=== PATIENT | female | born 2000 | race Caucasian/White ===

== ENCOUNTER 2022-10-15 05:20 | Inpatient (IN) ==
[2022-10-15] MEDS ORDERED: OXYTOCIN 30 UNITS/500 ML BAG IV PRN ×3 (06:15→23:11)
[2022-10-15] MEDS ORDERED: LIDOCAINE 1% LOCAL 20 ML VIAL INFIL PRN (06:15)
--- NOTE | 2022-10-15 06:20 | History & Physical Report ---
Date of Service October 15, 2022 Assessment & Plan (1) PROM (premature rupture of membranes): (2) Gestational diabetes: Plan 22 yo G1 at 39 wga admitted for prom VSS Fetus cat 1 PROM - rom confirmed, discussed pit now vs expectant managemtn, risks vs benefits of each. Pt desires to start pit now gbs neg epidural prn History of Present Illness Chief Complaint: PROM Primary Care Provider: NO PCP 22 yo G1 at 39 wga presents w/ LOF since 3AM. 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 denies hx STIs 04/2022 neg cyto Allergies Allergy/AdvReac Type Severity Reaction Status Date / Time Penicillins Allergy Mild Hives Verified 10/11/22 10:51 Home Medications Medication Instructions Recorded Confirmed Type prenat.vits,lázrao,qyu-amci-mctta 1 tab PO DAILY 07/19/22 10/15/22 History breast pump #1 ea 10/12/22 Rx Patient History Surgical History S/P wisdom tooth extraction Family History Aunt Hypertension Fibromyalgia Kidney disease Grandmother (Maternal) Hypertension Dementia Grandfather (Maternal) Heart disease Myocardial infarction Grandmother (Paternal) Heart disease Diabetes Grandfather (Paternal) Liver cancer Social History Smoking Status: Never smoker Second Hand Exposure: No; Do You Dip or Chew Tobacco: No; Hx Alcohol Use: No Hx Substance Use: No Preferred Language: Kinyarwanda Communication Ability: Effective Tax Specialist Required: No Beliefs That Will Affect Care: None marital status: Single marital status details: Body (25) [phone] Current Living Situation: Significant Other Current Living Situation Comment: lives with fob, 2 cats, fob changing litter current occupational status: unemployed Other Information That Helps Us Care for You: No Feels Safe at Home: Yes Safety Concerns: Feels Safe At This Time Physical Exam Genitourinary: OB Exam Abdomen: + vertex (confirmed by bsus) and + estimated weight (7-8) OB Exam Monitor Tracing: + external FHT monitor used, + external uterine monitor used and + category I 2/50/-2 by nursing, +amnisure Results & Data ([facility]) Vital Signs (Past 12 Hours) Vital Signs Temp Pulse Resp BP 10/15/22 05:41 74 123/81 10/15/22 05:36 97.7 F 20 Laboratory Results Initial OB Labs (04/11/22) Blood Type & RH O positive Antibody Screen negative HCT/HGB 41/13.8 Platelets 162 Hep C IgG 13yrs+ Old Negative Pap Test negative Chlamydia negative Gonorrhea negative Rubella immune RPR non reactive Urine Culture/Screen HBsAg negative HIV negative MCV 99 declined genetic testing. [facility] Diagnostic Findings post plac Coding Level of Care Code None Diagnoses PROM (premature rupture of membranes) O42.90 Gestational diabetes O24.419
[2022-10-15] MEDS: LACTATED RINGER'S 1,000 ML IV PRN ×4 (07:15→19:40)
[2022-10-15 07:42] LABS: Hematocrit (blood only) 33.5 % (37.0-47.0); Hemoglobin 11.5 g/dl (12.0-16.0); Mean Corpuscular Hemoglobin 31.6 pg (25.0-34.0); Mean Corpuscular Hgb Conc 34.3 g/dL (32.0-36.0); Mean Platelet Volume 13.8 fL (9.4-12.4); Platelet Count 124 K/uL (130-400); RDW Standard Deviation 43.4 fL (36.4-46.3); Red Blood Count 3.64 M/uL (4.20-5.40); White Blood Count 7.21 K/ul (4.8-10.8)
[2022-10-15] MEDS ORDERED: BUTORPHANOL TARTRATE 1 MG/ML VIAL IV PRN (12:35)
--- NOTE | 2022-10-15 12:38 | Labor Progress Brief Note ---
Date of Service October 15, 2022 Assessment & Plan (1) PROM (premature rupture of membranes): (2) Gestational diabetes: Plan 22 yo G1 at 39 wga admitted for prom VSS Fetus cat 1 PROM - Continue Pitocin. patient becoming uncomfortable and requested Stadol. Good contraction pattern gbs neg epidural prn Admission and Anticipated Discharge Date Admission Date: October 15, 2022 Results & Data ([facility]) Vital Signs (Past 12 Hours) Vital Signs Temp Pulse Resp BP 10/15/22 07:11 36.6 C 18 10/15/22 12:00 18 10/15/22 12:00 18 10/15/22 12:07 68 126/84 10/15/22 11:37 77 128/85 10/15/22 11:30 20 10/15/22 11:30 20 10/15/22 11:08 59 L 131/81 10/15/22 11:00 18 10/15/22 11:00 36.6 C 18 10/15/22 10:30 18 10/15/22 10:30 18 10/15/22 10:39 59 L 139/86 10/15/22 10:00 20 10/15/22 10:00 20 10/15/22 10:07 71 125/89 10/15/22 09:30 18 10/15/22 09:30 18 10/15/22 09:37 65 122/77 10/15/22 09:00 20 10/15/22 09:00 36.6 C 20 10/15/22 09:09 62 120/75 10/15/22 08:37 83 120/88 10/15/22 08:00 18 10/15/22 08:00 18 10/15/22 08:07 74 125/83 10/15/22 06:54 67 129/86 10/15/22 05:41 74 123/81 10/15/22 05:36 36.5 C 20 Coding Level of Care Code None Diagnoses PROM (premature rupture of membranes) O42.90 Gestational diabetes O24.419
[2022-10-15] MEDS ORDERED: ePHEDrine sulfate 50 MG/ML AMP ONE (14:14)
[2022-10-15] MEDS ORDERED: BUPIVACAINE 0.25% 30 ML VIAL ONE (14:14)
[2022-10-15] MEDS ORDERED: SODIUM CHLORIDE 0.9% INJ 10 ML VIAL ONE (14:14)
[2022-10-15] MEDS ORDERED: fentaNYL citrate 100 MCG/2 ML VIAL ONE (14:14)
[2022-10-15] MEDS ORDERED: LIDOCAINE 2%/EPINEPHRINE 1:200,000 20 ML SDV ONE (14:14)
[2022-10-15] MEDS ORDERED: fentaNYL 2MCG/ML ROPIVACAINE 1.25MG/ML 100 ML BAG EPI ONE (14:15)
--- NOTE | 2022-10-15 14:24 | Anesthesiology Consultation ---
Date of Service October 15, 2022 Assessment & Plan Chart Review Chart Review: Acceptable Risk for Surgery, Patient NOT seen in Pre Admission Testing and Acceptable Risk for Labor Epidural Consults Requested none ASA ASA2 Proposed Anesthesia Anesthesia Type: Labor Epidural and CSE History Height/Weight Height: 5 ft 5 in Weight: 80.739 kg Allergies Allergy/AdvReac Type Severity Reaction Status Date / Time Penicillins Allergy Mild Hives Verified 10/11/22 10:51 Medications Home Medications Medication Instructions Recorded Confirmed Last Taken prenat.vits,lázaro,lyq-ozub-dazkk 1 tab PO DAILY 07/19/22 10/15/22 10/13/22 08:00 breast pump #1 ea 10/12/22 Unknown Active Medications Generic Name Dose Route Start Last Admin Trade Name Freq PRN Reason Stop Dose Admin Butorphanol Tartrate 1 mg 10/15/22 12:35 10/15/22 12:59 Butorphanol Tartrate 1 Mg/Ml Vial IV 11/14/22 12:34 1 mg Q2HWA PRN Administration Pain Oxytocin 30 units in 500 mls @ 10 mls/hr 10/15/22 06:15 10/15/22 11:23 Pitocin IV 10/17/22 06:14 0.6 units/hr .Q24H PRN 10 mls/hr Labor Induction/Augmentation Titration Protocol 0.6 UNITS/HR Lactated Ringer's 1,000 mls @ 125 mls/hr 10/15/22 06:15 10/15/22 14:00 Lr IV 10/17/22 06:14 999 mls/hr .Q8H PRN Infusion L&D Protocol Protocol Past Medical History obese ;gerd;anemia;thrombocytopenia Exercise / Class Metabolic Activity II 4-5 Yardwork/Stairs/Walk up hill Past Family History Family History Aunt Hypertension Fibromyalgia Kidney disease Grandmother (Maternal) Hypertension Dementia Grandfather (Maternal) Heart disease Myocardial infarction Grandmother (Paternal) Heart disease Diabetes Grandfather (Paternal) Liver cancer Past Surgical History Surgical History S/P wisdom tooth extraction Past Anesthesia History No Hx of Anesthesia Complications and No Family Hx of Anesthesia Complications History of PONV No Hx of PONV and No Hx of Motion Sickness Social History Smoking Status: Never smoker Do You Dip or Chew Tobacco: No Hx Alcohol Use: No Hx Substance Use: No substance use type: does not use Physical Exam Vital Signs Last Vital Signs Temp 36.5 C 10/15/22 13:00 Pulse 73 10/15/22 14:19 Resp 18 10/15/22 13:00 BP 131/79 10/15/22 14:08 Pulse Ox 100 10/15/22 14:19 Testing Laboratory Results 10/15/22 06:38 10/15/22 10/15/22 10/15/22 14:05 10:02 06:21 POC Glucose 86 80 90
[2022-10-15] MEDS ORDERED: NALOXONE HCL 1 MG in SODIUM CHLORIDE 0.9% 1000ML 1,000 ML IV PRN (15:15)
[2022-10-15] MEDS ORDERED: ePHEDrine sulfate 50 MG/ML AMP IV PRN (15:15)
[2022-10-15] MEDS ORDERED: fentaNYL 2MCG/ML ROPIVACAINE 1.25MG/ML 100 ML BAG EPI PRN (15:15)
[2022-10-15] MEDS ORDERED: ONDANSETRON INJ 2 MG/ML 2 ML VIAL IV PRN (15:15)
[2022-10-15] MEDS ORDERED: diphenhydrAMINE 50 MG/ML VIAL IV PRN (15:15)
[2022-10-15] MEDS ORDERED: PROMETHAZINE HCL 25 MG in SODIUM CHLORIDE 0.9% 50 ML IV PRN (15:15)
[2022-10-15] MEDS ORDERED: NALBUPHINE HCL INJ 10 MG/ML AMP IV PRN (15:15)
[2022-10-15] MEDS ORDERED: NALOXONE HCL 0.4 MG/1 ML VIAL/CARP IV PRN (15:15)
--- NOTE | 2022-10-15 18:07 | Labor Progress Brief Note ---
Date of Service October 15, 2022 Subjective Reason For Note: Routine Evaluation Assessment & Plan (1) PROM (premature rupture of membranes): (2) Gestational diabetes: Plan 22 yo G1 at 39 wga admitted for prom VSS Fetus cat 1 PROM - Pitocin discontinued secondary to prolonged decel. Patient is still making progress well. Epidural placed gbs neg Admission and Anticipated Discharge Date Admission Date: October 15, 2022 Physical Exam Genitourinary: Manual OB Exam: + cervical dilation (9.5), + cervical effacement 100%, + station 0 and + amniotic fluid clear OB Exam Monitor Tracing: + external FHT monitor used, + external uterine monitor used, + category I, + normal FHT variability and + early decelerations present Results & Data ([facility]) Vital Signs (Past 12 Hours) Vital Signs Temp Pulse Resp BP Pulse Ox 10/15/22 07:11 36.6 C 18 10/15/22 18:05 66 100 10/15/22 18:00 71 18 100 10/15/22 17:55 65 100 10/15/22 17:52 76 118/73 10/15/22 17:50 67 100 10/15/22 17:45 67 100 10/15/22 17:40 63 99 10/15/22 17:37 70 126/79 10/15/22 17:35 64 100 10/15/22 17:30 64 20 100 10/15/22 17:25 62 100 10/15/22 17:23 68 124/75 10/15/22 17:02 36.6 C 10/15/22 17:20 62 100 10/15/22 17:15 61 99 10/15/22 17:10 62 99 10/15/22 17:07 83 118/60 10/15/22 17:05 65 100 10/15/22 17:00 68 20 100 10/15/22 16:55 69 100 10/15/22 16:53 64 114/64 10/15/22 16:50 68 100 10/15/22 16:45 65 100 10/15/22 16:40 67 100 10/15/22 16:38 73 115/60 10/15/22 16:35 62 100 10/15/22 16:30 73 20 99 10/15/22 16:25 67 115/62 100 10/15/22 16:20 74 100 10/15/22 16:15 72 100 10/15/22 16:10 70 100 10/15/22 16:07 77 122/57 L 10/15/22 16:05 77 100 10/15/22 15:30 20 10/15/22 15:30 20 10/15/22 16:00 68 18 100 10/15/22 15:59 67 108/62 10/15/22 15:55 72 100 10/15/22 15:54 74 109/55 L 10/15/22 15:50 72 100 10/15/22 15:49 68 113/55 L 10/15/22 15:47 100 H 107/67 10/15/22 15:45 84 96/55 L 10/15/22 15:44 85 100 10/15/22 15:39 90 119/71 100 10/15/22 15:38 100 H 132/89 10/15/22 15:35 116 H 119/76 10/15/22 15:34 85 100 10/15/22 15:33 107 H 120/69 10/15/22 15:32 90 115/69 10/15/22 15:31 99 H 108/68 10/15/22 15:29 104 H 10/15/22 15:29 98 H 114/76 100 10/15/22 15:27 85 119/74 10/15/22 15:25 82 119/75 10/15/22 15:24 94 H 100 10/15/22 15:23 93 H 110/73 10/15/22 15:21 82 115/70 10/15/22 15:19 75 10/15/22 15:19 77 118/71 100 10/15/22 15:17 74 118/69 10/15/22 15:15 36.7 C 63 20 119/70 10/15/22 15:14 61 100 10/15/22 15:13 58 L 115/72 10/15/22 15:11 79 109/64 10/15/22 15:09 60 114/67 100 10/15/22 15:08 62 113/63 10/15/22 15:07 59 L 112/65 10/15/22 15:05 56 L 119/63 10/15/22 15:04 58 L 100 10/15/22 15:03 56 L 118/64 10/15/22 15:01 68 117/60 10/15/22 14:59 77 100 10/15/22 14:55 78 126/73 10/15/22 14:54 80 100 10/15/22 14:49 219 H 82 L 10/15/22 14:44 75 100 10/15/22 14:39 64 100 10/15/22 14:38 79 129/79 10/15/22 14:34 64 100 10/15/22 14:29 64 100 10/15/22 14:24 59 L 100 10/15/22 14:19 73 100 10/15/22 14:14 66 100 10/15/22 14:09 57 L 100 10/15/22 14:08 66 131/79 10/15/22 13:37 79 124/70 10/15/22 13:00 18 10/15/22 13:00 36.5 C 18 10/15/22 12:30 18 10/15/22 12:30 18 10/15/22 13:07 61 113/64 10/15/22 12:37 56 L 120/68 10/15/22 12:00 18 10/15/22 12:00 18 10/15/22 12:07 68 126/84 10/15/22 11:37 77 128/85 10/15/22 11:30 20 10/15/22 11:30 20 10/15/22 11:08 59 L 131/81 10/15/22 11:00 18 10/15/22 11:00 36.6 C 18 10/15/22 10:30 18 10/15/22 10:30 18 10/15/22 10:39 59 L 139/86 10/15/22 10:00 20 10/15/22 10:00 20 10/15/22 10:07 71 125/89 10/15/22 09:30 18 10/15/22 09:30 18 10/15/22 09:37 65 122/77 10/15/22 09:00 20 10/15/22 09:00 36.6 C 20 10/15/22 09:09 62 120/75 10/15/22 08:37 83 120/88 10/15/22 08:00 18 10/15/22 08:00 18 10/15/22 08:07 74 125/83 10/15/22 06:54 67 129/86 Coding Level of Care Code None Diagnoses PROM (premature rupture of membranes) O42.90 Gestational diabetes O24.419
[2022-10-15] MEDS ORDERED: DIPHTHERIA/TETANUS/PERTUSSIS 0.5mL SYR/VIAL (Age 7+yrs) IM ONE (23:11)
[2022-10-15] MEDS ORDERED: ACETAMINOPHEN 325 MG TAB PO PRN (23:11)
[2022-10-15] MEDS ORDERED: BENZOCAINE 20% AER SPR 82.5 GM CAN EXT PRN (23:11)
[2022-10-15] MEDS ORDERED: HYDROCORTISONE ACETATE 25 MG SUPP PR PRN (23:11)
[2022-10-15] MEDS ORDERED: bisacodyL 10 MG SUPP PR PRN (23:11)
[2022-10-15] MEDS ORDERED: IBUPROFEN 600 MG TAB PO PRN (23:11)
--- NOTE | 2022-10-15 23:45 | Anesthesia Procedure Note ---
Date of Service October 15, 2022 Anesthesia Post Epidural Note Vital Signs Vital Signs: Temp Pulse Resp BP Pulse Ox 36.8 C 77 18 136/68 98 10/15/22 19:14 10/15/22 23:44 10/15/22 21:47 10/15/22 23:44 10/15/22 22:40 Pain Intensity Bilateral Lower Abdomen: Pain Intensity: 0 Notes Mental Status: alert / awake / arousable Nausea / Vomiting: adequately controlled Pain: adequately controlled Airway Patency, RR, SpO2: stable & adequate BP & HR: stable & adequate Hydration State: stable & adequate Neuraxial Anesthesia: was administered and sensory block is resolving Anesthetic Complications: no major complications apparent and Pt Satisfied with anesthetic care Epidural: Removed without complications and With tip intact
[2022-10-16] MEDS: PRENATAL VITAMIN 1 TAB PO SCH (08:38)
[2022-10-16] MEDS: FERROUS SULFATE 325 MG TAB PO SCH (08:38)
[2022-10-16] MEDS: DOCUSATE SODIUM 100 MG CAP PO SCH ×2 (08:38→21:10)
--- NOTE | 2022-10-16 08:56 | Obstetrical Progress Note ---
Date of Service October 16, 2022 Assessment & Plan (1) Encounter for visit: Day 1 status post vaginal delivery. Doing well. routine care. Subjective Ambulation: ambulating normally Voiding: no voiding problems Passing Gas:: Yes Diet Tolerance:: regular diet Lochia:: Moderate Feeding Type:: breast feeding Physical Exam Constitutional WD/WN, vitals as above Respiratory normal respiratory effort; no respiratory distress and no labored breathing Gastrointestinal (Abdomen) Inspection/Auscultation: abdomen normal to inspection; abdomen not distended Percussion/Palpation: abdomen soft; abdomen nontender, no guarding and abdomen not rigid Genitourinary OB Exam Abdomen: + fundal height Fundus: + firm and + relation to umbilicus (Below); not tender or not boggy Results & Data ([facility]) Vital Signs (Past 12 Hours) Vital Signs Temp Pulse Pulse Resp BP BP Pulse Ox 10/16/22 04:14 36.7 C 79 18 115/72 97 10/16/22 01:30 36.5 C 73 18 127/79 98 10/16/22 00:45 18 10/16/22 00:15 18 10/15/22 23:30 18 10/15/22 23:15 18 10/15/22 23:00 18 10/15/22 22:45 37.4 C 18 10/15/22 22:45 37.4 C 18 10/16/22 00:44 100 H 144/85 H 10/16/22 00:29 78 130/78 10/16/22 00:14 74 138/67 10/15/22 23:59 88 113/71 10/15/22 23:44 77 136/68 10/15/22 23:29 80 129/68 10/15/22 23:14 173 H 133/68 10/15/22 22:59 86 126/70 10/15/22 21:47 18 10/15/22 21:47 18 10/15/22 22:44 94 H 128/72 10/15/22 22:40 96 H 98 10/15/22 22:37 91 H 129/69 10/15/22 22:35 89 96 10/15/22 22:30 105 H 98 10/15/22 22:25 139 H 97 10/15/22 22:22 92 H 126/69 10/15/22 22:20 85 98 10/15/22 22:15 75 99 10/15/22 22:10 114 H 97 10/15/22 22:07 75 122/71 10/15/22 22:05 70 100 10/15/22 22:01 95 H 92 10/15/22 22:00 78 100 10/15/22 21:55 100 H 100 10/15/22 21:53 85 120/65 10/15/22 21:50 94 H 100 10/15/22 21:45 80 100 10/15/22 21:40 90 100 10/15/22 21:37 90 121/64 10/15/22 21:35 84 100 10/15/22 21:30 99 H 99 10/15/22 21:25 97 H 100 10/15/22 21:23 100 H 132/72 10/15/22 21:20 88 99 10/15/22 21:15 99 H 100 10/15/22 21:10 92 H 100 10/15/22 21:07 90 138/81 10/15/22 21:05 94 H 99 10/15/22 21:00 116 H 98 O2 Del Method 10/16/22 04:14 Room Air 10/16/22 01:30 Room Air 10/16/22 00:45 10/16/22 00:15 10/15/22 23:30 10/15/22 23:15 10/15/22 23:00 10/15/22 22:45 10/15/22 22:45 10/16/22 00:44 10/16/22 00:29 10/16/22 00:14 10/15/22 23:59 10/15/22 23:44 10/15/22 23:29 10/15/22 23:14 10/15/22 22:59 10/15/22 21:47 10/15/22 21:47 10/15/22 22:44 10/15/22 22:40 10/15/22 22:37 10/15/22 22:35 10/15/22 22:30 10/15/22 22:25 10/15/22 22:22 10/15/22 22:20 10/15/22 22:15 10/15/22 22:10 10/15/22 22:07 10/15/22 22:05 10/15/22 22:01 10/15/22 22:00 10/15/22 21:55 10/15/22 21:53 10/15/22 21:50 10/15/22 21:45 10/15/22 21:40 10/15/22 21:37 10/15/22 21:35 10/15/22 21:30 10/15/22 21:25 10/15/22 21:23 10/15/22 21:20 10/15/22 21:15 10/15/22 21:10 10/15/22 21:07 10/15/22 21:05 10/15/22 21:00
--- NOTE | 2022-10-16 17:06 | Delivery Summary ---
DATE OF SERVICE: 10/15/2022 PROCEDURE: Normal spontaneous vaginal delivery with bilateral labial laceration repair. SURGEON: Abdoul Espinoza MD PREOPERATIVE DIAGNOSES: 1. Single intrauterine at 39 weeks 1 day gestational age. 2. Spontaneous rupture of membranes. 3. Gestational diabetes. POSTOPERATIVE DIAGNOSES: 1. Single intrauterine at 39 weeks 1 day gestational age. 2. Spontaneous rupture of membranes. 3. Gestational diabetes. 4. Status post procedure. ESTIMATED BLOOD LOSS: 200 mL. DRAINS: Straight cath at the completion of the case. URINE OUTPUT: Per straight cath. COMPLICATIONS: None. FINDINGS: Viable female with weight of 7 pounds 11 ounces and Apgars of 9 and 10 at 1 and 5 minutes respectively. DESCRIPTION OF PROCEDURE: The patient progressed to 10 cm dilated, 100% effaced, positive 2 station, pushed over intact perineum with epidural anesthesia and delivered a viable female with weig ht and Apgars as noted above. Head of the delivered in BERNIE position, restituted to right tra nsverse. Nuchal cord was noted. Body and shoulders quickly followed. was noted to be vigor ous soon after delivery and 1 minute delayed cord clamping was initiated. Cord was then double clamp ed and cut. remained on maternal abdomen. Cord blood was obtained. Attention was then turn ed to delivery of placenta, which was delivered intact, 3-vessel cord, gentle cord traction. On insp ection of perineum, vagina, and cervix, there was noted to be bilateral labial lacerations, which wer e repaired with 3-0 Vicryl with interrupted stitch. Needle, sponge, and instrument counts were corre ct at the completion of the case. Both mother and stable in the immediate post-delivery jan od. Job ID: [id number]
[2022-10-16] MEDS ORDERED: bisacodyL 5 MG TABEC PO SCH (20:00)
--- NOTE | 2022-10-17 05:33 | Obstetrical Progress Note ---
Date of Service October 17, 2022 Assessment & Plan (1) care following vaginal delivery: Plan - Overall, feeling well and eating well today - Infant feeding going well without concern - Urinating and passing gas appropriately - Ambulating well in room - Pain controlled - Hgb 11.5 on 10/15 - Vitals stable and wnl - Routine PP care progressing well - Anticipate discharge @ 24-48 hours PP - Recommending f/u outpatient in 6 weeks Admission and Anticipated Discharge Date Admission Date: October 15, 2022 Supervising Physician Co-Signing Physician Notes Patient seen with resident and agree with the above findings and plan. Routine post care Subjective Patient is a 22 F who is PPD # 2 following delivery at 39 1/7. She reports feeling well overall this morning. - Ambulation - well throughout room - Voiding/[place] - independent voids, no dysuria or pressure - Gas/Stool - passing gas, no bowel movement - Diet - regular, no nausea or emesis - Lochia - diminishing, light amount - Feeding Type - breast feeding - Pain Level - 0/10, controlled w/o medication Review of Systems - Denies fever, chills, sweats - Denies shortness of breath, difficulty breathing, chest pain, palpitations, chest pressure. - Denies breast pain. - Denies dysuria. - Denies headache or changes in vision. Physical Exam Physical Exam: General: Alert, oriented. No acute distress. Cardiac: RRR, normal S1/S2, no murmurs/rubs/gallops. Respiratory: Non-labored, CTAB, no wheezes/rales/rhonchi. Symmetric chest rise. Abdomen: Soft, nontender, nondistended. Bowel sounds present. Uterus: Uterine fundus firm, palpable 2 cm below umbilicus. Lower Extremities: No lower extremity edema or swelling. No deep calf pain. Agustin's negative bilaterally. Results & Data ([facility]) Vital Signs (Past 12 Hours) Vital Signs Temp Pulse Resp BP Pulse Ox O2 Del Method 10/16/22 22:56 36.4 C L 80 18 110/71 98 Room Air 10/16/22 19:00 36.5 C 90 16 133/80 98 Room Air Resident Activity Tracking Resident Involvement: Resident Care Provided Care Provided: Adult [facility]
[2022-10-17] MEDS: DOCUSATE SODIUM 100 MG CAP PO SCH (08:41)
[2022-10-17] MEDS: FERROUS SULFATE 325 MG TAB PO SCH (08:41)
[2022-10-17] MEDS: PRENATAL VITAMIN 1 TAB PO SCH (08:41)
== END 2022-10-17 13:05 | disposition home or self-care (01) | DRG 807 ==
LOC: OPB 05:20 → 4S1 05:25 → 4E2 10-16 01:19

== ENCOUNTER 2023-10-31 01:07 | Inpatient (IN) ==
[2023-10-31] MEDS ORDERED: OXYTOCIN 30 UNITS/NSS 30 UNITS/500 ML BAG IV PRN ×2 (01:35→12:15)
[2023-10-31] MEDS ORDERED: LIDOCAINE 1% LOCAL 20 ML VIAL INFIL PRN (01:35)
--- NOTE | 2023-10-31 01:49 | History & Physical Report ---
Date of Service October 31, 2023 Assessment & Plan (1) Leakage of amniotic fluid: Plan: Admit to L&D. EFM/toco. Labs. Hourly glucose checks. Pitocin. She is in agreement with plan. (2) Encounter for supervision of normal in multigravida: History of Present Illness Chief Complaint: leaking fluid Primary Care Provider: NO PCP 23yo @ 40 02/08, came to L&D after large gush of clear fluid at home. +FM, no vaginal bleeding. Not feeling contractions. with gestational diabetes, diet controlled. Allergies Allergy/AdvReac Type Severity Reaction Status Date / Time Penicillins Allergy Mild Hives Verified 10/30/23 13:48 seafood Allergy Hives Uncoded 10/30/23 13:48 Home Medications Medication Instructions Recorded Confirmed Type vits no.124-ferrous fum 1 tab PO DAILY 04/04/23 10/30/23 History 27 mg iron-folic acid 800 mcg tablet ( Vitamin) acetone (urine) test (Ketone Urine #50 ea 05/12/23 10/30/23 Rx Test strips) blood sugar diagnostic (OneTouch #150 ea 05/12/23 10/30/23 Rx Verio test strips) blood-glucose meter (OneTouch #1 ea 05/12/23 10/30/23 Rx Verio Reflect Meter) lancets 33 gauge #150 ea 05/12/23 10/30/23 Rx Patient History Medical History Encounter for visit PROM (premature rupture of membranes) Gestational diabetes Supervision of normal intrauterine in primigravida Surgical History Status post laser lithotripsy of ureteral calculus S/P wisdom tooth extraction Family History Aunt Hypertension Fibromyalgia Kidney disease Grandmother (Maternal) Hypertension Dementia Grandfather (Maternal) Heart disease Myocardial infarction Grandmother (Paternal) Heart disease Diabetes Grandfather (Paternal) Liver cancer Denies family history of Ovarian cancer Breast cancer Colorectal cancer Social History (Updated 10/23/23 @ 13:51 by Kat Blunt RN) Smoking Status: Never smoker Second Hand Exposure: No; Do You Dip or Chew Tobacco: No; Hx Alcohol Use: No Hx Substance Use: No Preferred Language: Filipino Communication Ability: Effective Hearing Ability: Normal Bridge Opener Required: No Beliefs That Will Affect Care: None marital status: Single marital status details: Carrillo (25) [phone] or Gloria Conrad (mother) [phone] Current Living Situation: Family and Significant Other Current Living Situation Comment: Lives with Carrillo and daughter current occupational status: unemployed and other current occupation: in process of applying to [employer] office Other Information That Helps Us Care for You: No Feels Safe at Home: Yes Diet: regular Diet Comment: Allergy to seafood caffeine: Yes (Pepsi) Gender Identity: Female Assistive Devices: None Review of Systems All systems reviewed & are unremarkable except as noted in HPI & below Physical Exam Physical Exam: FHT Cat 1 [place] Q 4-5 min SVE 4/80/-2, grossly ruptured with + nitrizine Constitutional: WD/WN, vitals as above Respiratory: normal respiratory effort, lungs clear to auscultation no respiratory distress Cardiovascular: Rate/Rhythm: regular rate and regular rhythm Gastrointestinal (Abdomen): Inspection/Auscultation: abdomen normal to inspection Percussion/Palpation: abdomen soft; abdomen nontender Gravid. No s/s chorio or abruption. Skin: no rashes, warm and dry Psychiatric: A+Ox3, euthymic affect Results & Data Vital Signs (Past 12 Hours) Vital Signs Temp Pulse Resp BP 10/31/23 01:18 36.6 C 18 10/31/23 01:17 92 H 135/90 Coding Level of Care Code None Diagnoses Leakage of amniotic fluid O42.90 Encounter for supervision of normal in multigravida Z34.80
[2023-10-31 02:27] LABS: Alanine Aminotransferase 7 U/L (7-52); Albumin Globulin Ratio 1.1 (0.9-2); Albumin Level 3.3 gm/dl (3.4-5.0); Alkaline Phosphatase 216 U/L (34-104); Anion Gap 9 (3-11); Aspartate Aminotransferase 11 U/L (13-39); Bilirubin,Total 0.4 mg/dl (0.2-1.0); Blood Urea Nitrogen 6 mg/dl (6-23); Calcium 8.4 mg/dl (8.6-10.3); Carbon Dioxide 19 mmol/L (21-32); Chloride 108 mmol/L (98-107); Creatinine Clr Calc Pharmacy 221.5 ml/min; Est GFR (African American) > 150.0 ml/min; Est GFR (Non-African American) 141.4 ml/min; Globulin 2.9 gm/dl (2.5-4.0); Glucose 102 mg/dl (70-99(Fasting)); Potassium 3.6 mmol/L (3.5-5.1); Sodium 136 mmol/L (136-145); Total Protein 6.2 gm/dl (6.0-8.3)
[2023-10-31 02:34] LABS: Hematocrit (blood only) 31.8 % (37.0-47.0); Hemoglobin 10.2 g/dl (12.0-16.0); Mean Corpuscular Hemoglobin 28.8 pg (25.0-34.0); Mean Corpuscular Hgb Conc 32.1 g/dL (32.0-36.0); Mean Corpuscular Volume 89.8 fL (80.0-100.0); Platelet Count 127 K/uL (130-400); Platelet Estimate Decreased (Normal); RDW Coefficient of Variation 14.8 % (11.5-14.5); RDW Standard Deviation 48.4 fL (36.4-46.3); Red Blood Count 3.54 M/uL (4.20-5.40); White Blood Count 9.49 K/ul (4.8-10.8)
[2023-10-31] MEDS: OXYTOCIN 30 UNITS/NSS 30 UNITS/500 ML BAG IV PRN ×2 (02:40→11:57)
[2023-10-31] MEDS: LACTATED RINGER'S 1,000 ML IV PRN (02:40)
[2023-10-31] MEDS ORDERED: ONDANSETRON INJ 2 MG/ML 2 ML VIAL IV PRN (06:24)
[2023-10-31] MEDS ORDERED: SODIUM CHLORIDE 0.9% PF INJ 10 ML VIAL EPI PRN (06:24)
[2023-10-31] MEDS ORDERED: fentANYL 2 MCG/ML BUPIVacaine 0.125%-NSS 100ML BAG EPI PRN (06:24)
[2023-10-31] MEDS ORDERED: fentaNYL citrate PF 100 MCG/2 ML VIAL EPI PRN (06:24)
[2023-10-31] MEDS ORDERED: ePHEDrine sulfate 50 MG/ML AMP IV PRN (06:24)
[2023-10-31] MEDS ORDERED: diphenhydrAMINE 50 MG/ML VIAL IV PRN (06:24)
[2023-10-31] MEDS ORDERED: NALBUPHINE HCL 5 MG in SYRINGE 0 ML IV PRN (06:24)
[2023-10-31] MEDS ORDERED: ROPIVACAINE 0.5% PF 5 MG/ML 20 ML VIAL EPI PRN (06:24)
[2023-10-31] MEDS ORDERED: LIDOCAINE 2% MPF LOCAL 5 ML VIAL EPI PRN (06:24)
[2023-10-31] MEDS ORDERED: NALOXONE HCL 0.4 MG/1 ML VIAL/CARP IV PRN (06:24)
[2023-10-31] MEDS ORDERED: NALOXONE HCL 1 MG in SODIUM CHLORIDE 0.9% 1,000 ML IV PRN (06:24)
[2023-10-31] MEDS ORDERED: BUPIVACAINE 0.25% PF 30 ML VIAL EPI PRN (06:24)
[2023-10-31] MEDS ORDERED: PROMETHAZINE HCL 6.25 MG in SODIUM CHLORIDE 0.9% 50 ML IV PRN (06:24)
--- NOTE | 2023-10-31 06:26 | Anesthesiology Consultation ---
Date of Service October 31, 2023 Assessment & Plan Chart Review Chart Review: Patient NOT seen in Pre Admission Testing and Acceptable Risk for Labor Epidural Consults Requested none ASA ASA2 Proposed Anesthesia Anesthesia Type: Labor Epidural Risk / Benefits Reviewed With: PT / POA / Parent / Guardian, Accepts Plan and Informed Consent Obtained History Height/Weight Height: 5 ft 5 in Weight: 89.904 kg Allergies Allergy/AdvReac Type Severity Reaction Status Date / Time Penicillins Allergy Mild Hives Verified 10/30/23 13:48 seafood Allergy Hives Uncoded 10/30/23 13:48 Medications Home Medications Medication Instructions Recorded Confirmed Last Taken vits [id number] fum 1 tab PO DAILY 04/04/23 10/31/23 10/30/23 09:00 27 mg iron-folic acid 800 mcg tablet ( Vitamin) acetone (urine) test (Ketone Urine #50 ea 05/12/23 10/30/23 Unknown Test strips) blood sugar diagnostic (OneTouch #150 ea 05/12/23 10/30/23 Unknown Verio test strips) blood-glucose meter (OneTouch #1 ea 05/12/23 10/30/23 Unknown Verio Reflect Meter) lancets 33 gauge #150 ea 05/12/23 10/30/23 Unknown Active Medications Generic Name Dose Route Start Last Admin Trade Name Marco Antonioq PRN Reason Stop Dose Admin Oxytocin 30 units in 500 mls @ 5 mls/hr 10/31/23 01:35 10/31/23 04:05 Pitocin 30 Units/Nss IV 11/02/23 01:34 0.3 units/hr .Q24H PRN 5 mls/hr Labor Induction/Augmentation Titration Protocol 0.3 UNITS/HR Lactated Ringer's 1,000 mls @ 125 mls/hr 10/31/23 01:35 10/31/23 02:40 Lr IV 11/02/23 01:34 125 mls/hr .Q8H PRN Administration L&D Protocol Protocol Past Medical History Medical History Encounter for visit PROM (premature rupture of membranes) Gestational diabetes Supervision of normal intrauterine in primigravida Exercise / Class Metabolic Activity II 4-5 Yardwork/Stairs/Walk up hill Past Family History Family History Aunt Hypertension Fibromyalgia Kidney disease Grandmother (Maternal) Hypertension Dementia Grandfather (Maternal) Heart disease Myocardial infarction Grandmother (Paternal) Heart disease Diabetes Grandfather (Paternal) Liver cancer Denies family history of Ovarian cancer Breast cancer Colorectal cancer Past Surgical History Surgical History Status post laser lithotripsy of ureteral calculus S/P wisdom tooth extraction Past Anesthesia History No Hx of Anesthesia Complications and No Family Hx of Anesthesia Complications History of PONV No Hx of PONV and No Hx of Motion Sickness Social History Smoking Status: Never smoker Do You Dip or Chew Tobacco: No Hx Alcohol Use: No Hx Substance Use: No substance use type: does not use Physical Exam Vital Signs Last Vital Signs Temp 36.8 C 10/31/23 05:00 Pulse 90 10/31/23 06:15 Resp 18 10/31/23 05:00 BP 130/80 10/31/23 06:15 ENMT Mouth: no dentition abnormality Thyromental Distance: > or= 3.5 Finger Breadths Mallampati Class: II Neck normal visual inspection Respiratory normal respiratory effort Auscultation: lungs clear to auscultation bilaterally Cardiovascular Rate/Rhythm: regular rate and regular rhythm Psychiatric Orientation: alert Testing Laboratory Results 10/31/23 01:52 10/31/23 01:52 10/31/23 10/31/23 10/31/23 06:14 05:00 04:07 POC Glucose 111 H 96 90 10/31/23 03:11 POC Glucose 95
[2023-10-31] MEDS: fentANYL 2 MCG/ML BUPIVacaine 0.125%-NSS 100ML BAG ONE (06:39)
[2023-10-31] MEDS: BUPIVACAINE 0.25% PF 30 ML VIAL ONE (06:40)
[2023-10-31] MEDS: LIDOCAINE 2%/EPINEPHRINE 1:200,000 20 ML PF ONE (06:40)
[2023-10-31] MEDS: SODIUM CHLORIDE 0.9% PF INJ 10 ML VIAL ONE (06:40)
--- NOTE | 2023-10-31 11:32 | Delivery Summary ---
Vaginal Delivery Summary Date of Service October 31, 2023 Vaginal Delivery Summary VAVD Patient was to be induced today but entered spontaneous labor with spontaneous rupture of membranes earlier in the morning she did require Pitocin and then requested epidural she progressed to fully dilated but when she pushed she had significant deceleration a prolonged D-cell and 6 minutes the station was +2 so I offered vacuum delivery to expedient patient agreed vacuum was placed on the scalp 1 thread puller 1 contraction in the baby's head was delivered the vacuum was then released. Once the baby's head was delivered there was no nuchal cord fluid was clear the baby did do a slight turtle sign I attempted to reach him for the anterior shoulder and with help from the head start assistant teacher nurse Force she was able to put suprapubic pressure and the shoulder was released total maneuvers after delivery of the head took 30 seconds to deliver the baby baby was then delivered cord clamped and cut baby vigorous live vigorous female cord clamped and cut cord gases obtained cord blood obtained placenta removed gentle traction there was no tearing IV Pitocin started after delivery the placenta uterine tone improved sponge and instrument counts correct estimated blood loss 150 mL So in summary a outlet vacuum for prolonged decelerations patient tolerated well No bladder been drained 90 minutes earlier [facility] Vaginal Delivery Charge Delivery Type Details: [facility]
[2023-10-31] MEDS ORDERED: HYDROCORTISONE ACETATE 25 MG SUPP PR PRN (11:48)
[2023-10-31] MEDS ORDERED: oxyCODONE/ACETAMINOPHEN 5mg/325mg TAB PO PRN (11:48)
[2023-10-31] MEDS ORDERED: ACETAMINOPHEN 325 MG TAB PO PRN (11:48)
[2023-10-31] MEDS ORDERED: bisacodyL 10 MG SUPP PR PRN (11:48)
[2023-10-31] MEDS ORDERED: BENZOCAINE 20% SPRY 85 APPLN/85 GM CAN EXT PRN (11:48)
[2023-10-31] MEDS ORDERED: IBUPROFEN 600 MG TAB PO PRN (11:48)
[2023-10-31] MEDS: OXYTOCIN 30 UNITS/500ML NSS IV ONE (11:57)
[2023-10-31] MEDS: BUPIVACAINE 0.25% PF 30 ML VIAL EPI STA (12:02)
[2023-10-31] MEDS: fentaNYL citrate PF 100 MCG/2 ML VIAL EPI STA (12:04)
[2023-10-31] MEDS: fentaNYL citrate PF 100 MCG/2 ML VIAL ONE (12:06)
[2023-10-31] MEDS: ePHEDrine sulfate 50 MG/ML AMP ONE (12:06)
[2023-10-31] MEDS: LIDOCAINE 2%/EPINEPHRINE 1:200,000 20 ML PF EPI STA (12:06)
[2023-10-31] MEDS: SODIUM CHLORIDE 0.9% PF INJ 10 ML VIAL EPI STA (12:07)
[2023-10-31 12:59] LABS: Base Excess Cord Arterial Bld -9.7 mEq/L (-9-1.8); Base Excess Cord Venous Blood -8.6 mEq/L (-7.7-1.9); CO2 Cord Arterial Blood 78 mmHg (39.1-73.5); Cord Venous Blood HCO3 20 mmol/L (18.4-26.8); Cord Venous Blood PCO2 54 mmHg (30.4-57.2); Cord Venous Blood PO2 23 mmHg (14.1-43.3); Cord Venous Blood pH 7.18 (7.20-7.44); HCO3 Cord Arterial Blood 22 mmol/L (19.7-28.5); O2 Saturation Cord Venous Bld < 60.0 % (<68); Oxygen Sat Cord Arterial Blood < 60.0 % (<60); PO2 Cord Arterial Blood < 20 mmHg (4.1-31.7); pH Cord Arterial Blood 7.06 (7.1-7.38)
--- NOTE | 2023-10-31 13:36 | Anesthesia Procedure Note ---
Date of Service October 31, 2023 Anesthesia Post Epidural Note Vital Signs Vital Signs: Temp Pulse Resp BP Pulse Ox 36.5 C 80 16 127/79 100 10/31/23 11:00 10/31/23 13:31 10/31/23 12:30 10/31/23 13:31 10/31/23 12:00 Pain Intensity Abdomen: Pain Intensity: 0 Notes Mental Status: alert / awake / arousable and participated in evaluation Nausea / Vomiting: adequately controlled Pain: adequately controlled Airway Patency, RR, SpO2: stable & adequate BP & HR: stable & adequate Hydration State: stable & adequate Neuraxial Anesthesia: was administered and sensory block is resolving Anesthetic Complications: no major complications apparent and Pt Satisfied with anesthetic care Epidural: Removed without complications and With tip intact
[2023-10-31] MEDS: DIPHTHER/TETAN/PERTUS Vaccine (Tdap, Adol/Adult) 0.5mL IM ONE (14:39)
[2023-10-31] MEDS: DOCUSATE SODIUM 100 MG CAP PO SCH (20:11)
--- NOTE | 2023-11-01 07:25 | Obstetrical Progress Note ---
Date of Service November 01, 2023 Assessment & Plan (1) care and examination: Plan: Doing well today encourage ambulation pain control plan for dc this afternoon pending baby clearance from peds Admission and Anticipated Discharge Date Admission Date: October 31, 2023 Subjective 23 yo post day 1 s/p VAD Ambulation: ambulating normally Voiding: no voiding problems Passing Gas:: Yes Diet Tolerance:: regular diet Lochia:: Small Feeding Type:: breast feeding Current Pain Level: minimal Resting comfortably this AM in NAD. Denies CASSIDY, CP, SOB, N/V/D, LE pain/swelling. Desires dc today, afternoon Review of Systems Review of Systems: reviewed, per HPI Physical Exam Physical Exam: General: patient resting comfortably, NAD, non-toxic in appearance, answers questions appropriately. Skin: warm, dry, intact HEENT: NC/AT, anicteric sclera, conjunctiva without injection, moist mucus membranes. Heart: +S1/S2, regular, no m/r/g Lungs: equal air entry bilaterally, no rales/rhonchi/wheezes Abd: +BS, soft, NT/ND, uterine fundus firm at umbilicus Ext: warm, no clubbing/cyanosis or edema, Agustin's neg. Neuro: nonfocal, speech intact, no facial droop, moving all extremities on command. Results & Data Vital Signs (Past 12 Hours) Vital Signs Temp Pulse Resp BP 11/01/23 03:15 36.5 C 83 18 124/78 10/31/23 23:15 36.7 C 90 18 123/82 10/31/23 21:05 36.5 C 81 18 126/81 Resident Activity Tracking Resident Involvement: Resident Care Provided Care Provided: Adult Hospital Medicine
[2023-11-01] MEDS ORDERED: PRENATAL VITAMIN 1 TAB PO SCH (08:00)
[2023-11-01 08:07] LABS: Hematocrit (blood only) 29.7 % (37.0-47.0); Hemoglobin 9.5 g/dl (12.0-16.0); Mean Corpuscular Hemoglobin 29.3 pg (25.0-34.0); Mean Corpuscular Volume 91.7 fL (80.0-100.0); Mean Platelet Volume 12.8 fL (9.4-12.4); Platelet Count 107 K/uL (130-400); RDW Coefficient of Variation 15.2 % (11.5-14.5); RDW Standard Deviation 51.1 fL (36.4-46.3); Red Blood Count 3.24 M/uL (4.20-5.40); White Blood Count 8.82 K/ul (4.8-10.8)
[2023-11-01] MEDS: PRENATAL VITAMIN 1 TAB PO SCH (09:06)
[2023-11-01] MEDS ORDERED: bisacodyL 5 MG TABEC PO SCH (20:00)
== END 2023-11-01 14:20 | disposition home or self-care (01) | DRG 807 ==
LOC: OPB 01:07 → 4S1 01:09 → 4E2 14:10